=== PATIENT | female | born 1995 | race Caucasian/White ===

== ENCOUNTER 2017-02-27 13:37 | Emergency (ER) | payer SELFPAY ==
[~2017-02-27] VITALS: Ht 162.6 cm; Wt 83.0 kg
[~2017-02-27 13:37] MED LIST: HYDR1SYP3 PO; ORTHTAB3 PO
[2017-02-27 13:39] VITALS: BP 132/79; PULSE 92; RESP 20; TEMP 99.2
--- NOTE | 2017-02-27 13:45 | PD ---
Physical Exam Time Seen by Provider: 13:44 Narrative 22-year-old female presents to emergency Department with complaint of left ankle pain after missing a step and rolling her left ankle proximally 6 exam this morning. She did fall. Denies hitting her head or loss of consciousness. Denies neck pain or back pain. Patient seen in triage. Vital signs reviewed. Patient awaiting medical bed. Data Data Last Documented VS Vital Signs Date Time Temp Pulse Resp B/P (MAP) Pulse Ox O2 Delivery O2 Flow Rate FiO2 02/27/17 13:39 99.2 92 20 132/79 (96) [facility] Supervised Visit with JOSE: Megan Middleton Feb 27, 2017 13:45
--- NOTE | 2017-02-27 13:57 | PD ---
HPI Chief Complaint: Musculoskeletal Complaint Time Seen by Provider: 13:57 Travel History International Travel<30 days: No Contact w/Intl Traveler<30days: No Traveled to known affect area: No History of Present Illness HPI 22 year-old female presents to the emergency department for evaluation left ankle pain. Patient states she was walking this when she stepped off the sidewalk and rolled her ankle. She is not fall to the ground. She did not strike her head or lose consciousness. She experienced immediate pain in the lateral aspect of the left ankle, 8 out of 10, exacerbated with walking. It does not radiate anywhere. Alterations in sensation of the distal extremity. No other symptoms to report. She is not taking anything for her pain. She denies any significant medical history. PFS Past Medical History Anxiety: Yes Developmental Delay: No Diminished Hearing: No Immunizations Current: Yes ?: Not Social History Alcohol Use: No Tobacco Use: No Substance Use: No Allergies-Medications (Allergen,Severity, Reaction): Coded Allergies: No Known Allergies (Unverified , 02/27/17) Reported Meds & Prescriptions Reported Meds & Active Scripts Active Ortho Tri-Cyclen Lo (Norgestimate-Ethinyl Estradiol) Cycln Lo Tab 1 Tab PO DAILY Reported Atarax (Hydroxyzine HCl) 10 Mg/5 Ml Syrp 25 Mg PO BID PRN Review of Systems Except as stated in HPI: all other systems reviewed are Neg Physical Exam Narrative GENERAL: Well-nourished, well-developed female patient, sitting in a wheelchair , in no acute distress SKIN: Focused skin assessment warm/dry. HEAD: Normocephalic. EYES: No scleral icterus. No injection or drainage. NECK: Supple, trachea midline. No JVD or lymphadenopathy. CARDIOVASCULAR: Regular rate and rhythm without murmurs, gallops, or rubs. RESPIRATORY: Breath sounds equal bilaterally. No accessory muscle use. EXTREMITY: The left ankle is swollen and tender over the lateral aspect but the skin is intact and there is no ligamentous instability. There is no deformity. The foot and toes are warm and well-perfused. Sensation to pain and light touch is intact. BACK: Nontender without obvious deformity. No CVA tenderness. Data Data Last Documented VS Vital Signs Date Time Temp Pulse Resp B/P (MAP) Pulse Ox O2 Delivery O2 Flow Rate FiO2 02/27/17 13:39 99.2 92 20 132/79 (96) Orders Orders Ankle, Complete ([id number]) (02/27/17 13:45) Splint Or Brace Apply/Monitor (02/27/17 14:13) Ibuprofen (Motrin) (02/27/17 14:15) MDM Medical Decision Making Medical Screen Exam Complete: Yes Emergency Medical Condition: Yes Medical Record Reviewed: Yes Differential Diagnosis Ankle sprain versus fracture versus dislocation versus contusion Narrative Course 22 Year-old female presents to emergency room for evaluation left ankle pain. X -ray imaging is reviewed and reveals no acute bony normality. Patient was placed in a Velcro stirrup splint provided crutches. She'll be discharged home with pain control and instructions to follow-up outpatient. She agrees to return immediately with any acute worsening of symptoms. Diagnosis Primary Impression: Ankle sprain Qualified Codes: S93.402A - Sprain of unspecified ligament of left ankle, initial encounter Referrals: Primary Care Physician Patient Instructions: Ankle Sprain (ED), Ankle Sprain Exercises (GEN), General Instructions Additional Instructions: Ice and elevate to reduce pain and swelling Brace for support and compression Follow-up with primary care provider Return immediately with any acute worsening of symptoms Med/Other Pt SpecificInfo: Prescription(s) given Scripts Ibuprofen (Ibuprofen) 800 Mg Tab 800 MG PO Q8H Y for Pain/Inflammation, #30 TAB 0 Refills Prov: Juani Varela 02/27/17 Disposition: 01 DISCHARGE HOME Condition: Stable Juani Varela Feb 27, 2017 13:57
[2017-02-27] MEDS ORDERED: IBUPROFEN 800 MG TAB PO ONE (14:15)
[2017-02-27] MEDS ORDERED: IBUP800T23 PO (14:21)
--- NOTE | 2017-02-27 14:23 | RADRPT ---
EXAM DATE/TIME: 02/27/2017 14:01 [facility] COMPARISON: No previous studies available for comparison. INDICATIONS : Left ankle pain after falling. MEDICAL HISTORY : None. SURGICAL HISTORY : None. ENCOUNTER: Initial ACUITY: 1 day PAIN SCORE: 0/10 LOCATION: Left ankle FINDINGS: Significant soft tissue swelling is seen along the lateral malleolus. Bony structures are intact. The re is no evidence of fracture or dislocation. There is no significant arthropathy. CONCLUSION: Lateral soft tissue swelling without evidence of acute bony abnormality. Carlo Murcia MD on February 27, 2017 at 14:22 Board Certified Radiologist. This report was verified electronically.
== END 2017-02-27 15:11 | disposition home or self-care (01) ==
LOC: NEPK 13:37
DX: F41.9 Anxiety disorder, unspecified (principal); S93.402A Sprain of unspecified ligament of left ankle, initial encounter; W10.9XXA Fall (on) (from) unspecified stairs and steps, initial encounter
CPT/HCPCS: 73610; 99283; E0113; L1906

== ENCOUNTER 2017-03-01 18:49 | Emergency (ER) | payer SELFPAY ==
[~2017-03-01] VITALS: Ht 162.6 cm; Wt 85.2 kg
[~2017-03-01 18:49] MED LIST changes: +IBUP800T23 PO
[2017-03-01 19:08] VITALS: BP 123/77; PULSE 71; RESP 18; TEMP 98.6; O2SAT 97
[2017-03-01] MEDS ORDERED: ULTR50TA5 PO (19:39)
--- NOTE | 2017-03-01 19:39 | PD ---
HPI . Left ankle pain Chief Complaint: Injury Time Seen by Provider: 19:31 Travel History International Travel<30 days: No Contact w/Intl Traveler<30days: No Traveled to known affect area: No History of Present Illness HPI Patient presents for follow-up of a left ankle injury. She states that she was seen here 2 days ago for a sprained left ankle. She comes in now stating that her toes tingle and her calf is spasming. States that she has been taking ibuprofen for the pain. She states that she has been keeping it wrapped and iced and elevated. PFSH Past Medical History Anxiety: Yes Developmental Delay: No Diminished Hearing: No Immunizations Current: Yes Tetanus Vaccination: Unknown Influenza Vaccination: No ?: Not LMP: 02/15/17 Social History Alcohol Use: No Tobacco Use: No Substance Use: No Allergies-Medications (Allergen,Severity, Reaction): Coded Allergies: No Known Allergies (Unverified , 03/01/17) Reported Meds & Prescriptions Reported Meds & Active Scripts Active Ibuprofen 800 Mg Tab 800 Mg PO Q8H PRN Review of Systems Except as stated in HPI: all other systems reviewed are Neg Musculoskeletal: Positive: Myalgias, Arthralgias Neurologic: Positive: Paresthesia Physical Exam Narrative GENERAL: Patient is awake and alert and in no distress. SKIN: Warm and dry with no rash or lesions. She does have an ant bite on her right breast which does not appear to be infected. HEAD: Normocephalic/atraumatic. EYES: Pupils are equal. Extraocular movements are intact. NECK: Neck is supple. Full range of motion without pain. RESPIRATORY: Nonlabored respirations. MUSCULOSKELETAL: She has some minimal swelling of the left ankle. She is tender mainly over the left posterior talofibular ligament. The ankle is stable. She is distally neurovascularly intact. No tenderness to compression of the calf. NEUROLOGICAL: Nonfocal. PSYCHIATRIC: Appropriate mood and affect. Data Data Last Documented VS Vital Signs Date Time Temp Pulse Resp B/P (MAP) Pulse Ox O2 Delivery O2 Flow Rate FiO2 03/01/17 19:08 98.6 71 18 123/77 (92) 97 MDM Medical Decision Making Medical Screen Exam Complete: Yes Emergency Medical Condition: Yes Differential Diagnosis Differential diagnosis of extremity trauma includes but is not limited to fracture, sprain or strain, dislocation, contusion Narrative Course This patient presents for follow-up of a left ankle sprain. The ankle appears as expected tonight. No change in treatment needed. Diagnosis Primary Impression: Left ankle sprain Med/Other Pt SpecificInfo: Prescription(s) given Scripts Tramadol (Ultram) 50 Mg Tab 50 MG PO Q4H Y for PAIN, #12 TAB 0 Refills Prov: Sameera Boo MD 03/01/17 Disposition: 01 DISCHARGE HOME Condition: Stable Sameera Boo MD Mar 01, 2017 19:39
== END 2017-03-01 19:54 | disposition home or self-care (01) ==
LOC: PHEFT 18:49
DX: S93.402D Sprain of unspecified ligament of left ankle, subsequent encounter (principal); X58.XXXD Exposure to other specified factors, subsequent encounter
CPT/HCPCS: 99283

== ENCOUNTER 2017-09-14 22:42 | Emergency (ER) | payer OTHER ==
[~2017-09-14] VITALS: Ht 162.6 cm; Wt 91.0 kg
[~2017-09-14 22:42] MED LIST changes: -HYDR1SYP3 PO; +IBUP1TAB7 PO; -IBUP800T23 PO; -ORTHTAB3 PO; +TRAM50 PO
[2017-09-14 23:18] VITALS: BP 163/90; PULSE 89; RESP 16; TEMP 98.7; O2SAT 100
[2017-09-14] MEDS ORDERED: valACYclovir HCL 500 MG TAB PO ONE (23:45)
[2017-09-14] MEDS ORDERED: VALT1TAB PO (23:46)
[2017-09-14] MEDS ORDERED: TRAM50 PO (23:46)
--- NOTE | 2017-09-14 23:47 | PD ---
HPI Chief Complaint: Skin Problem Time Seen by Provider: 23:37 Travel History International Travel<30 days: No Contact w/Intl Traveler<30days: No Traveled to known affect area: No History of Present Illness HPI Patient comes in complaining of a right sided flank area pain, that was described as a burning sensation, and then yesterday she started to develop a rash over it. She describes the pain as burning tingling sensation, about 4 -5 out of 10, daily and continuously occurring. Patient can recall if she had chickenpox as a child. Patient also denies having any hematuria, nor any nausea vomiting or diarrhea. Patient also denies any abdominal pain, chest pain , headache, visual changes, or spending any time in the [place] outdoors. 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 PFSH Past Medical History Anxiety: Yes Developmental Delay: No Diminished Hearing: No Immunizations Current: Yes Tetanus Vaccination: Unknown Influenza Vaccination: No ?: Unknown LMP: 07/30/2017 Social History Alcohol Use: Yes (every other day) Tobacco Use: No Substance Use: No Allergies-Medications (Allergen,Severity, Reaction): Coded Allergies: No Known Allergies (Unverified Adverse Reaction, Unknown, 09/14/17) Reported Meds & Prescriptions Reported Meds & Active Scripts Active Ultram (Tramadol HCl) 50 Mg Tab 50 Mg PO Q4H PRN Ibuprofen 800 Mg Tab 800 Mg PO Q8H PRN Review of Systems General / Constitutional: No: Fever Eyes: No: Visual changes HENT: No: Headaches Cardiovascular: No: Chest Pain or Discomfort Respiratory: No: Shortness of Breath Gastrointestinal: No: Abdominal Pain Genitourinary: Positive: Flank Pain Musculoskeletal: No: Pain Skin: Positive Rash Neurologic: No: Weakness Psychiatric: No: Depression Endocrine: No: Polydipsia Hematologic/Lymphatic: No: Easy Bruising Physical Exam Narrative GENERAL: [-] SKIN: Focused skin assessment warm/dry. An area of the right flank near the T10 dermatome the patient has a vesicular papular erythematous rash that is in a dermatomal pattern, no fluctuance, no induration, and no streaking. Also no crepitus palpable HEAD: Atraumatic. Normocephalic. EYES: Pupils equal and round. No scleral icterus. No injection or drainage. ENT: No nasal bleeding or discharge. Mucous membranes pink and moist. NECK: Trachea midline. No JVD. CARDIOVASCULAR: Regular rate and rhythm. No murmur appreciated. RESPIRATORY: No accessory muscle use. Clear to auscultation. Breath sounds equal bilaterally. GASTROINTESTINAL: Abdomen soft, non-tender, nondistended. Hepatic and splenic margins not palpable. MUSCULOSKELETAL: No obvious deformities. No clubbing. No cyanosis. No edema. NEUROLOGICAL: Awake and alert. No obvious cranial nerve deficits. Motor grossly within normal limits. Normal speech. PSYCHIATRIC: Appropriate mood and affect; insight and judgment normal. Data Data Last Documented VS Vital Signs Date Time Temp Pulse Resp B/P (MAP) Pulse Ox O2 Delivery O2 Flow Rate FiO2 09/14/17 23:18 98.7 89 16 163/90 (114) 100 Orders Orders Valacyclovir (Valtrex) (09/14/17 23:45) [facility] Medical Decision Making Medical Screen Exam Complete: Yes Emergency Medical Condition: Yes Medical Record Reviewed: Yes Differential Diagnosis Cellulitis versus lymphangitis versus abscess versus shingles Narrative Course The patient clinically has findings consistent with zoster. Diagnosis Primary Impression: Zoster Patient Instructions: General Instructions, Shingles (ED) Scripts Tramadol (Ultram) 50 Mg Tab 50 MG PO Q8H Y for PAIN, #12 TAB 0 Refills Prov: Zaki Ho MD 09/14/17 Valacyclovir (Valtrex) 1,000 Mg Tab 1000 MG PO TID for Mgmt Viral Infection, #90 TAB 0 Refills Prov: Zaki Ho MD 09/14/17 Disposition: DISCHARGE HOME Condition: Stable Zaki Ho MD Sep 14, 2017 23:47
== END 2017-09-15 00:13 | disposition home or self-care (01) ==
LOC: NEPE 22:42
DX: B02.9 Zoster without complications (principal); F41.9 Anxiety disorder, unspecified
CPT/HCPCS: 99283